=== PATIENT | female | born 1960 | race Caucasian/White ===

== ENCOUNTER 2018-02-13 07:55 | Day surgery (SDC) | payer MEDICARE ==
[2018-02-12 08:54] VITALS: BMI 21.5
[2018-02-13 08:16] LABS: #Basophils 0.1 thou/uL (0.0-0.2); #Eosinphils 0.2 thou/uL (0.0-0.7); #Lymphocytes 2.1 thou/uL (1.20-3.40); #Monocytes 1.3 thou/uL (0.11-0.59); #Neutrophils 8.5 thou/uL (1.40-6.50); %Basophils 0.8 % (0.0-1.0); %Eosinophils 1.9 % (0.0-10.0); %Lymphocytes 16.9 % (21.0-51.0); %Neutrophils 69.5 % (42.0-75.0); Hemoglobin 14.1 g/dL (12.0-16.0); Mean Corpuscular HGB CONC 33.2 g/dL (32.0-36.0); Mean Corpuscular Hemoglobin 30.3 pg (27.0-31.0); Mean Corpuscular Volume 91.2 fL (78.0-98.0); Mean Platelet Volume 7.1 fL (7.4-10.4); Platelet Count 239 thou/uL (130-400); RBC Distribution Width 13.2 % (11.5-14.5); Red Blood Cell (RBC) Count 4.66 mill/uL (4.20-5.40); White Blood Cell (WBC) Count 12.2 thou/uL (4.8-10.8)
[2018-02-13 08:21] LABS: INR-International Normal Ratio 0.9; PTT 29.1 SEC (22.9-36.1); Prothrombin Time 12.1 SEC (12.0-14.7)
[2018-02-13 09:59] VITALS: BP 135/61; TEMP 98.6
--- NOTE | 2018-02-13 10:22 | ULT ---
ULTRASOUND GUIDED LIVER BIOPSY: Date: 02/13/18 HISTORY: Abnormal LFTs. COMPARISON: None. TECHNIQUE/FINDINGS: Patient brought to ultrasound suite. All questions were answered. The patient's left upper quadrant of the abdomen was prepped and draped in the normal sterile fashion . Small dermatotomy was made after adequate anesthesia. Using an 18 gauge needle, a total of two 22 mm cores were obtained. The patient tolerated the procedu re well and without complication. IMPRESSION: Technically successful ultrasound guided liver biopsy. POS: [facility]
== END 2018-02-13 11:05 | disposition home or self-care (01) ==
LOC: ULT 07:55
PROVIDERS: ATTEND Internal Medicine Gastroenterology
PROC: 0FB23ZX Excision of Left Lobe Liver, Percutaneous Approach, Diagnostic (ICD-10-PCS; principal; 2018-02-13)
DX: K73.9 Chronic hepatitis, unspecified (principal); K21.9 Gastro-esophageal reflux disease without esophagitis; F10.10 Alcohol abuse, uncomplicated; I25.2 Old myocardial infarction; I10 Essential (primary) hypertension; F41.9 Anxiety disorder, unspecified; F32.9 Major depressive disorder, single episode, unspecified; Z87.891 Personal history of nicotine dependence; Z79.82 Long term (current) use of aspirin; Z79.891 Long term (current) use of opiate analgesic; Z79.899 Other long term (current) drug therapy; Z88.5 Allergy status to narcotic agent; Z91.013 Allergy to seafood; Z91.041 Radiographic dye allergy status
CPT/HCPCS: 36415; 47000; 76942; 85025; 85610; 85730; 88307; 88313